=== PATIENT | female | born 1990 | race Caucasian/White ===

== ENCOUNTER 2023-01-15 15:56 | Inpatient (IN) | payer BC, SELFPAY ==
[2023-01-15] VITALS (16 sets, daily range): BP systolic 123–155; BP diastolic 70–113; PULSE 67–94; RESP 18; TEMP 36.7–36.8; O2SAT 99–100; BMI 32.3
[2023-01-15 16:36] LABS: Basophils Percent Auto 0.2 % (0.2-1.2); Eosinophils Absolute Auto 0.2 K/mm3 (0-0.3); Eosinophils Percent Auto 1.9 % (0-4.4); Hematocrit 31.4 % (37.0-47.0); Hemoglobin 10.4 g/dL (12.0-15.0); Immature Granulocyte Absolute 0.03 K/mm3 (0.00-0.031); Immature Granulocyte Percent A 0.4 % (0-0.5); Lymphocytes Absolute Auto 2.26 K/mm3 (0.9-3.2); Lymphocytes Percent Auto 27.5 % (18.3-44.2); Mean Corpuscular HGB Conc 33.1 g/dl (32-36); Mean Corpuscular Hemoglobin 31.8 pg (26-34); Monocytes Absolute Auto 0.5 K/mm3 (0.1-0.6); Monocytes Percent Auto 6.6 % (2.6-8.5); Neutrophils Absolute Auto 5.2 K/mm3 (1.3-6.7); Neutrophils Percent Auto 63.4 % (45.5-73.1); Platelet Count Result 250 k/mm3 (150-375); Red Blood Count 3.27 M/mm3 (4.2-5.4); Red Cell Distribution Width 14.6 % (11.5-14.5); White Blood Count 8.2 K/mm3 (4.5-10.0)
--- NOTE | 2023-01-15 16:37 | LDADM ---
This patient, Jigar Nails, was admitted to Labor/Delivery/Recovery 104 on 01/15/23 at 15:56. Plans for labor, pain management and were discussed with patient. Patient/family oriented to hospital policies and general routines including ID bracelet, bed and alarms, visiting hours, pain management, procedures, bathroom and other care routines, personal items, smoking policy, room service/diet and guest tray routines, security routines, and visiting hours. Patient/Family are encouraged to report perceived risks to care and to ask questions if they do not understand what they are told or what they should do. See OBIX for further documentation.
[2023-01-15] MEDS: DINOPROSTONE 10 MG VAG INSERT VAGINAL (16:47)
[2023-01-15] MEDS: SERTRALINE HCL 25 MG TABLET PO (20:03)
[2023-01-15] MEDS: LABETALOL HCL 100 MG TABLET PO (20:03)
[2023-01-15 21:57] LABS: Rapid Plasma Reagin Non-Reactive (NonReactive)
[2023-01-15] MEDS: ONDANSETRON INJ 4 MG/2 ML VIAL IV PUSH (23:13)
[2023-01-15] MEDS: LACTATED RINGERS 500 ML 999 ML IV CONT (23:19)
--- NOTE | 2023-01-15 23:34 | WPDANESEPP ---
Anes - Eval Pre Procedure Procedure: Labor epidural Date/Time: 01/15/23 23:34 Surgeon: Jess Preop Diagnosis: Abdominal pain with contractions Pre Op Diagnosis: Induction of Labor Patient Data Age: 32 Gender: F Height: 1.68 m Weight: 91 kg Last Vital Signs Temp 98.1 F 01/15/23 19:13 Pulse 72 01/15/23 22:29 Resp 18 01/15/23 16:41 BP 128/86 01/15/23 22:29 Pulse Ox 100 01/15/23 23:32 O2 Del Method Room Air 01/15/23 16:36 Allergies Allergy/AdvReac Type Severity Reaction Status Date / Time latex AdvReac Mild Rash Verified 01/11/23 14:42 Home Medications Medication Instructions Recorded Confirmed Type sertraline 25 mg tablet 25 mg PO DAILY 04/23/21 01/11/23 History labetalol 100 mg tablet 100 mg PO Q12H 05/27/22 01/11/23 History ferrous sulfate 325 mg (65 mg 325 mg PO BID 11/18/22 01/11/23 History iron) tablet metoclopramide HCl 10 mg tablet 10 mg PO DAILY 12/23/22 01/15/23 History vits no.126-ferrous fum 1 tablet PO DAILY 12/23/22 01/11/23 History 28 mg iron-folic acid 800 mcg tablet (Classic ) Laboratory Tests 01/15/23 01/15/23 16:11 16:12 WBC 8.2 K/mm3 (4.5-10.0) RBC 3.27 L M/mm3 (4.2-5.4) Hgb 10.4 L g/dL (12.0-15.0) Hct 31.4 L % (37.0-47.0) MCV 96.0 fl (80-100) MCH 31.8 pg (26-34) MCHC 33.1 g/dl (32-36) RDW 14.6 H % (11.5-14.5) Plt Count 250 k/mm3 (150-375) MPV 10.0 fl (7.4-10.4) Immature Gran % (Auto) 0.4 % (0-0.5) Neut % (Auto) 63.4 % (45.5-73.1) Lymph % (Auto) 27.5 % (18.3-44.2) [place] % (Auto) 6.6 % (2.6-8.5) Eos % (Auto) 1.9 % (0-4.4) Baso % (Auto) 0.2 % (0.2-1.2) Lymph # (Auto) 2.26 K/mm3 (0.9-3.2) [place] # (Auto) 0.5 K/mm3 (0.1-0.6) Eos # (Auto) 0.2 K/mm3 (0-0.3) Baso # (Auto) 0.0 K/mm3 (0.0-0.1) Abs Immat Gran (auto) 0.03 K/mm3 (0.00-0.031) Absolute Neuts (auto) 5.2 K/mm3 (1.3-6.7) Absolute Nucleated RBC 0.0 K/mm3 (0.0-0.012) Nucleated RBC % 0.0 % (0.0-0.2) RPR Non-reactive (NonReactive) Blood Type O Positive Antibody Screen Negative : gestational age HCG: positive Patient hx anesthesia problems: none Family hx anesthesia problems: none Results Review: All pre-operative results and documents have been reviewed as part of the pre-operative evaluation. [facility], LAT[facility] Past Medical History Medical History Hypertension Kidney stones and not yet delivered Suppression of menses Surgical History Surgical History H/O colposcopy with cervical biopsy 01/07/15 H/O cystoscopy Family History Family History Grandparent Cerebrovascular accident maternal grandfather Hypertension maternal grandfather Heart disease maternal grandfather Mother Cerebrovascular accident Social History Social History Smoking status: Never smoker Alcohol intake: current Drinks per week: 5 Substance use: never Substance use type: does not use Lack of Transportation: No Lack of Food: Never True Current Housing: I Have Housing Concerned About Future Housing: No Difficulty Paying Gas/Electric Bills: No Difficulty Paying for Meds: No Currently Unemployed: No Education: Master's Degree or Higher Difficulty w/ Childcare or Family Care: No Living arrangements: other Additional living arrangements comments: boyfriend Occupation/Education: occupation Additional occupation/education comments: general contractor Gender identity (if verbalized by the patient): Female Sexual Orientation (if Verbalized by the Patient): Straight or Heterosexual
[2023-01-16] VITALS (33 sets, daily range): BP systolic 67–130; BP diastolic 47–87; PULSE 64–131; RESP 16–18; TEMP 36.6–37.6; O2SAT 96–99
[2023-01-16] MEDS: LACTATED RINGERS 1,000 ML 125 ML IV CONT (00:46)
[2023-01-16] MEDS: PHENYLEPHRINE 1,000 MCG/10 ML SYRINGE 100 MCG IV PUSH (00:48)
[2023-01-16] MEDS: WITCH HAZEL 40 PADS 1 PAD TOPICAL ×2 (02:00→17:51)
--- NOTE | 2023-01-16 02:20 | P.PCNOB_ITS ---
OB - Delivery Note Procedure Procedure: Patient pushed for a spontaneous vaginal delivery. A nuchal x 2 was noted and reduced on the perineum. The fetus was delivered atraumatically and placed on the maternal abdomen. The cord was clamped and cut after 1 minute of life. The cord was double clamped and cut and a segment of cord was collected for cord gases. Cord blood was collected for blood type and Coomb's testing. The placenta delivered spontaneously and was noted to be intact. The perineum was inspected a nd there was a 2nd degree perineal laceration. The laceration was repaired with 2-0 vicryl in the usual fashion. There was also a right labial laceration that was re-approximated with 3-0 vicryl. The uterus was firm and good hemostasis was noted. The patient and fetus were stable in the delivery room. Induction method: Per Cervidil Protocol Delivery monitor: External FHT Route of delivery: Episiotomy description: None Laceration Description: Perineal - 2nd Degree and Labial (right) Delivery repair: vicryl Specimen: No Quantitative Blood Loss (ml): 300 Anesthesia type: Epidural Disposition: Floor () Complications: No immediate complications [place] Baby Date of : 01/16/23 Time of : 01:43 Weeks of gestation at delivery: 40 gender: Female presentation: vertex position: Right Occiput Anterior Placenta delivery description: Spontaneous Cord Vessel Description: 3 Vessels and Nuchal Cord (x2) score one minute: 8 score five minutes: 9 AMG Delivery Billing Delivery Delivery: Delivery Charge
[2023-01-16] MEDS: OXYTOCIN 30 UNITS/NS 500 ML 30 UNITS/500 ML BAG 125 UNITS IV CONT (02:24)
--- NOTE | 2023-01-16 02:24 | WPDHPUPDATE1 ---
History and Physical Update Update Date/Time: 01/16/23 02:24 32 yo G1 at 39w6d who present for IOL for CHTN. has been uncomplicated thus far. History and Physical has been reviewed, including an updated exam of the patient. There are NO changes in the patient's condition. Risks, benefits, and alternatives have been discussed and questions answered. Patient agrees to proceed with procedure. A/P: admit to L&D routine admission orders Rh+ GBS neg plan for cervidil IOL
--- NOTE | 2023-01-16 04:10 | PC.NURSE ---
Patient transferred to post room #285 via ( W/C ). Support person present. Oriented to unit, room, information board, rooming in, admission packet and security measures. Patient verbalizes understanding.
[2023-01-16] MEDS: IBUPROFEN 600 MG TABLET PO ×3 (06:49→20:45)
[2023-01-16] MEDS: LABETALOL HCL 100 MG TABLET PO ×2 (08:32→20:45)
[2023-01-16] MEDS: MULTIVIT/MIN/PREN/FOL AC/IRON TABLET 1 TAB PO (08:32)
[2023-01-16] MEDS: SERTRALINE HCL 25 MG TABLET PO ×2 (08:34→20:50)
[2023-01-16] MEDS: DOCUSATE SODIUM 100 MG CAPSULE PO ×2 (08:35→17:50)
--- NOTE | 2023-01-16 12:37 | PC.NURSE ---
[id number] Introductions were made, then consulted with patient to assess needs related to . Mother led the conversation with her?plans to feed?her infant and the?experience so far. Mother works well with her with encouragement and education. Blood sugar was checked with [id number] upright on mother's chest between her breast. Encouraged understanding of the benefits of skin to skin (demonstrating unwrapping and placing upright on her chest), stimulating with massage touch, changing positions to encourage wakefulness, how to watch for early feeding cues, responsive feeding, feeding on demand (aiming for 8-12 times in 24 hours, about every 2-3 hours), milk production, building/maintaining a milk supply, duration of feeding, signs of adequate intake/output and how to record on the feeding sheet. Reviewed positioning and ear, shoulder, hip alignment, supporting the breast to facilitate a deep latch, asymmetrical latch (off-center), leading with the chin with a big, open, wide gape and body close to mother. latched optimally to the right breast in football position. Education given to mother of how to visualize suck/swallow and listen for drinking at the breast which infant demonstrated well. was able to maintain latch without discomfort to mother. Nipple care reviewed with optimal latch and good positioning. Reviewed good handwashing when or touching the breast/nipples to prevent infection. Resources used to facilitate learning were used with the handouts, tool, mom and baby guide. Mother voiced understanding of skin to skin, stimulating with massage touch, responsive feedings, hand expressed colostrum, talking to infant to encourage if it has been 2 -2.5 hours since the start of the last , to call if does not latch, or if there is discomfort with . Resources provided for inpatient/outpatient with feeding sheet and the mom/baby guide. Mother voiced understanding of information, demonstrated learning and will call if there is a request for assistance. Reported to the Primary RN.
--- NOTE | 2023-01-16 14:29 | P.PNOB_ITS ---
OB - PN: Subj Subjective Date/time seen: 01/16/23 14:29 Pain well controlled. Bleeding has decreased. Vaginal area sore as appropriate. VSS afebrile abd soft labs noted routine pp care likely home tomorrow OB - PN: Obj Data Labs 01/15/23 16:11 Labs: Laboratory Results - last 24 hr 01/15/23 01/15/23 16:11 16:12 WBC 8.2 RBC 3.27 L Hgb 10.4 L Hct 31.4 L MCV 96.0 MCH 31.8 MCHC 33.1 RDW 14.6 H Plt Count 250 MPV 10.0 Immature Gran % (Auto) 0.4 Neut % (Auto) 63.4 Lymph % (Auto) 27.5 [place] % (Auto) 6.6 Eos % (Auto) 1.9 Baso % (Auto) 0.2 Lymph # (Auto) 2.26 [place] # (Auto) 0.5 Eos # (Auto) 0.2 Baso # (Auto) 0.0 Abs Immat Gran (auto) 0.03 Absolute Neuts (auto) 5.2 Absolute Nucleated RBC 0.0 Nucleated RBC % 0.0 RPR Non-reactive Blood Type O Positive Antibody Screen Negative OB - PN A/P Time Spent With Patient Time: Total time spent is greater than 50% in coordination of care (as documented) at patient's floor/unit and/or counseling patient:
[2023-01-16] MEDS: ACETAMINOPHEN 325 MG TABLET 650 MG PO (17:45)
[2023-01-16] MEDS: BENZOCAINE 20% AER SPR (*SP) 56 GM CAN 1 SPRAY TOPICAL (17:50)
[2023-01-17] MEDS: ACETAMINOPHEN 325 MG TABLET 650 MG PO ×2 (03:03→08:57)
[2023-01-17] MEDS: IBUPROFEN 600 MG TABLET PO ×2 (03:03→08:56)
[2023-01-17 04:18] LABS: Hematocrit 27.7 % (37.0-47.0); Hemoglobin 8.9 g/dL (12.0-15.0)
[2023-01-17 07:38] VITALS: PULSE 73
[2023-01-17] MEDS: LABETALOL HCL 100 MG TABLET PO (07:38)
[2023-01-17] MEDS: POLYSACCHARIDE IRON COMPLEX 150 MG CAPSULE PO (07:40)
[2023-01-17] MEDS: DOCUSATE SODIUM 100 MG CAPSULE PO (07:40)
[2023-01-17] MEDS: MULTIVIT/MIN/PREN/FOL AC/IRON TABLET 1 TAB PO (07:40)
--- NOTE | 2023-01-17 08:44 | PM.OBDSVD ---
DS: Admitting Diagnosis Discharge Date 01/17/2023 Admitting Diagnosis OB - DS: Summary OB Procedures : None OB Procedures Intrapartum: Spontaneous Vag Delivery OB Procedures: : None Time Spent with Patient Time attestation: Total time spent providing and/or coordinating discharge services: DS: Data Data Completed and Pending Labs on day of discharge: Labs from last 24 hours 01/17/23 03:41 Hgb 8.9 L Hct 27.7 L Discharge Plan Discharge Discharging Clinician: Mir Mercado Patient Disposition: Home, Self-Care Activity: no straining, follow weight bearing status and pelvic rest Diet: as tolerated Discharge Instructions: 1. Iron tablets twice daily Patient Instructions: Antibiotic Form Stand Alone Forms: General Discharge Information Follow-up/Referrals: Mir Mercado MD [Physician] - 3 Weeks Discharge Medications: New ibuprofen 600 mg Tablet 600 mg PO Q6H PRN (Reason: Cramping) Qty: 30 0RF Continued sertraline 25 mg tablet 25 mg PO DAILY labetalol 100 mg tablet 100 mg PO Q12H ferrous sulfate 325 mg (65 mg iron) tablet 325 mg PO BID Classic 28 mg iron- 800 mcg Tablet 1 tablet PO DAILY Discontinued metoclopramide HCl 10 mg tablet 10 mg PO DAILY Date of admission: 01/15/23 15:56 Primary Care Provider: Romaine*Rickey Admitting Provider: Mir Mercado Attending physician on admission: Mir Mercado Condition: Stable
--- NOTE | 2023-01-17 08:55 | WPDANLDPN2 ---
Anes-Prog Note L&D Date/Time: 01/17/23 08:55 Comfortable throughout: labor and delivery Neuraxial method: epidural Epidural/Spinal procedure site: clean & non-tender Neuro status: Neuro function grossly intact. Cardiovascular status: normal Respiratory status: normal Airway patency: baseline Mental status: baseline Post-Op hydration status: normal Vital Signs: Last Vital Signs Temp 36.7 C 01/16/23 19:30 Pulse 73 01/17/23 07:38 Resp 18 01/16/23 19:30 BP 126/75 01/16/23 19:30 Pulse Ox 98 01/16/23 17:00 O2 Del Method Room Air 01/16/23 19:30 Pain score (VAS): 2/10 Post-procedural complaints: none Patient feedback: Patient satisfied with anesthetic care.
[2023-01-18 08:27] VITALS: BP 119/66; PULSE 79; RESP 18; TEMP 36.7; O2SAT 100
== END 2023-01-17 11:02 | disposition home or self-care (01) | DRG 807 ==
LOC: ANHLDR 16:00 → ANHOB2 01-16 04:16
PROVIDERS: Student in an Organized Health Care Education/Training Program; Admitting Provider Obstetrics & Gynecology; PCP Internal Medicine; Visit Provider Obstetrics & Gynecology
DX: O10.92 Unspecified pre-existing hypertension complicating childbirth (principal); Z37.0 Single live birth; Z3A.39 39 weeks gestation of pregnancy; O70.1 Second degree perineal laceration during delivery; O69.81X0 Labor and delivery complicated by cord around neck, without compression, not applicable or unspecified
CPT/HCPCS: 36415; 85014; 85018; 85025; 86592; 86850; 86900; 86901; A9270; J2371; J2405; J2590; J2795; J7120

== ENCOUNTER 2025-03-25 09:39 | Outpatient (CLI) | payer BC, SELFPAY ==
--- NOTE | ~2025-03-25 | US_ITS ---
EXAMINATION: US OB follow up DATE: 03/25/2025 09:59 INDICATION: Encounter for supervision of normal third trimester . Small for gestational age. TECHNIQUE: Real-time ultrasound of the pelvis was performed. The interpreting radiologist was not present for the study. COMPARISON: None. FINDINGS: There is a single living fetus in vertex presentation. The placenta is posterior and not low-lying. heart rate is 134 beats per minute (bpm). The amniotic fluid index is 10.9 cm, which is normal. (5th%-95%: 8.1-24.8 cm at 34 weeks estimated gestational age). The following biometric data were obtained: BPD: 8.7 cm -> 34 weeks 6 days Head circumference: 30.5 cm -> 34 weeks 0 days Abdominal circumference: 30.7 cm -> 34 weeks 4 days Femur length: 6.6 cm -> 33 weeks 6 days These measurements are concordant. Head circumference to abdominal circumference ratio: 1.00 (normal range 0.94-1.11). Estimated weight: 2414 g (+/-) 362 g or 5 lbs. 5 oz. (+/-) 13 oz. IMPRESSION: 1. Single living fetus in vertex presentation with heart rate of 134 bpm. 2. Normal amniotic fluid index of 10.9 cm. 3. Estimated weight is 39th percentile by Hadlock criteria when 05/02/2025 is used as the estimated date of delivery (JENY). Please correlate with clinical information or earlier ultrasounds for most accurate JENY. Reviewed, dictated and finalized at location A. CULATION OFFICER IMPRESSION: 1. Single living fetus in vertex presentation with heart rate of 134 bpm. 2. Normal amniotic fluid index of 10.9 cm. 3. Estimated weight is 39th percentile by Hadlock criteria when 05/02/2025 is used as the estimated date of delivery (JENY). Please correlate with clinica l information or earlier ultrasounds for most accurate JENY.
== END 2025-03-25 09:40 | disposition home or self-care (01) ==
LOC: MICIMG 09:39
PROVIDERS: PCP Internal Medicine; Visit Provider Obstetrics & Gynecology
DX: Z34.90 Encounter for supervision of normal pregnancy, unspecified, unspecified trimester (principal)
CPT/HCPCS: 76816